=== PATIENT | female | born 1980 | race Caucasian/White ===

== ENCOUNTER → 2019-04-08 | Outpatient (CLI) | payer OTHER ==
[~2019-04-08] MED LIST: DOCU100 PO; FAMO20 PO; HYDACE5 PO; LAVAP17G PO; MAGCIT300 PO; OXYACE5T PO; PROM25 PO; TAMS.4ER PO
[2019-04-10 13:07] LABS: HPV 16 Negative (Negative); HPV 18 Negative (Negative); HPV OTHER HR TYPES Negative (Negative)
== END | disposition home or self-care (01) ==
LOC: LAB 11:10 → LAB SHORT 11:10
PROVIDERS: Obstetrics & Gynecology
DX: Z01.419 Encounter for gynecological examination (general) (routine) without abnormal findings (principal)
CPT/HCPCS: 87624; G0123

== ENCOUNTER 2020-11-11 14:41 | Emergency (ER) | payer OTHER ==
[~2020-11-11] VITALS: Ht 162.6 cm; Wt 83.9 kg
[2020-11-11] MEDS ORDERED: IBUP800 PO (15:59)
== END 2020-11-11 16:13 | disposition home or self-care (01) ==
LOC: ER 14:41
DX: S16.1XXA Strain of muscle, fascia and tendon at neck level, initial encounter (principal); S80.02XA Contusion of left knee, initial encounter; S80.01XA Contusion of right knee, initial encounter; Z88.0 Allergy status to penicillin; V49.40XA Driver injured in collision with unspecified motor vehicles in traffic accident, initial encounter; Y92.410 Unspecified street and highway as the place of occurrence of the external cause
CPT/HCPCS: 36415; 71045; 73120; 73562-LT; 73562-RT; 99284-25; A9270

== ENCOUNTER 2023-03-31 22:56 | Emergency (ER) | payer OTHER ==
[~2023-03-31] VITALS: Ht 160 cm; Wt 86.2 kg
[~2023-03-31 22:56] MED LIST changes: +IBUP800 PO
[2023-03-31 23:04] VITALS: BP 126/77
[2023-04-01] MEDS ORDERED: ACET500 PO (00:10)
[2023-04-01] MEDS ORDERED: DIAZ2 PO (00:10)
[2023-04-01] MEDS ORDERED: Ibuprofen600 MG PO (00:10)
== END 2023-04-01 00:20 | disposition home or self-care (01) ==
LOC: ER 22:56
DX: M62.838 Other muscle spasm (principal); Z88.0 Allergy status to penicillin
CPT/HCPCS: 93005; 93010; 96372; 99283-25; A9270; J1885; J7512

== ENCOUNTER 2024-07-17 10:01 | Day surgery (SDC) | payer OTHER ==
[2024-07-17] VITALS (18 sets, daily range): BP systolic 114–150; BP diastolic 56–98
[~2024-07-17] VITALS: Ht 161 cm; Wt 89.5 kg
[~2024-07-17 10:01] MED LIST changes: +ACET500 PO; +CeFAZolin Sodium 2,000 MG in NS 100 ML IV SCH; +DIAZ2 PO; +IRON; +Ibuprofen600 MG PO; +LEVSOD75 PO; +LORA.5 PO; +Lactated Ringer's 1,000 ML IV SCH; +VITAMIN D310 MC4 PO
[2024-07-17] MEDS ORDERED: Bupivacaine 0.5% HCl 5 MG/ML 30MLVIAL ONE (10:15)
[2024-07-17] MEDS ORDERED: ZOLPIDEM TART12.5 MG PO (10:22)
[2024-07-17] MEDS ORDERED: propofoL 20 ML IV ONE (10:38)
[2024-07-17] MEDS ORDERED: FentaNYL Citrate 50 MCG/ML 2 ML Injection ONE ×3 (10:38→13:21)
[2024-07-17] MEDS ORDERED: Ondansetron HCl 2 MG / ML 2ML Vial ONE (10:40)
[2024-07-17] MEDS ORDERED: Dexamethasone Sod Phos 10 MG/ML 1ML VIAL ONE (10:40)
[2024-07-17] MEDS ORDERED: Rocuronium Bromide 10 MG/ML 5ML Injection IV ONE ×2 (10:40→11:10)
[2024-07-17] MEDS ORDERED: Midazolam HCl 1MG / ML 2ML Vial ONE (10:45)
[2024-07-17] MEDS ORDERED: Midazolam HCl 1MG / ML 2ML Vial IV ONE (10:50)
[2024-07-17] MEDS ORDERED: Sugammadex Sodium 200 MG/2ML SDV (100 MG/ML) ONE (11:10)
[2024-07-17] MEDS ORDERED: HYDROcodone 5-APAP 325 TAB PO PRN (11:30)
[2024-07-17] MEDS ORDERED: HYDROmorphone HCl/Pf 1MG SYR ONE (13:14)
[2024-07-17] MEDS ORDERED: LORazepam 0.5 MG Tab PO PRN (14:00)
[2024-07-17] MEDS ORDERED: Cholecalciferol 400 unit Tab PO SCH (14:00)
[2024-07-17] MEDS ORDERED: Lactated Ringer's 1,000 ML IV SCH (14:05)
[2024-07-17] MEDS ORDERED: HYDROmorphone HCl/Pf 1MG SYR IV PRN (14:10)
[2024-07-17] MEDS ORDERED: OxyCODONE 5 mg/Acetamin 325 mg TABLET PO PRN (14:10)
[2024-07-17] MEDS ORDERED: Ondansetron 4 MG TAB PO PRN (14:10)
[2024-07-17] MEDS ORDERED: FLU VACC TS2024-25(6MOS UP)/PF 45 MCG/0.5 ML SYRINGE IM PRN (14:10)
[2024-07-17] MEDS ORDERED: Promethazine HCl 25 MG Tab PO PRN (14:10)
[2024-07-17] MEDS ORDERED: Ondansetron HCl 2 MG / ML 2ML Vial IV PRN (14:10)
[2024-07-17] MEDS ORDERED: Promethazine HCl 12.5 MG Supp PR PRN (14:10)
[2024-07-17] MEDS ORDERED: Simethicone 80 MG Chew PO PRN (14:15)
[2024-07-17] MEDS ORDERED: Naloxone HCl 0.4MG / ML 1ML Vial IV PRN (14:15)
[2024-07-17] MEDS ORDERED: Ketorolac Tromethamine 30mg Vial IV PRN (14:25)
--- NOTE | 2024-07-17 16:22 | NUR ---
SHIFT SUMMARY PT ARRIVED TO THE ROOM FROM PACU AT 1310. PT AWAKE AND ORIENTED. PT RATED PAIN AT 6/10 AND WAS GIVEN PERCOCET. PT ABLE TO REST WITH EYES CLOSED. VSS. NO CHANGES SINCE PT ARRIVED TO THE ROOM. VSS. BEDSIDE REPORT GIVEN TO JESSICA SALINAS.
--- NOTE | 2024-07-17 17:45 | NUR ---
ASSUMED PT CARE AT ABOUT 1600
[2024-07-17] MEDS ORDERED: CeFAZolin Sodium 2,000 MG in NS 100 ML IV SCH (18:00)
[2024-07-18 03:38] VITALS: BP 115/70
--- NOTE | 2024-07-18 04:44 | NUR ---
SHIFT SUMMARY POD 1 CHERI TOTAL LAP HYSTER PT ABLE TO REST DURING THE NIGHT. PAIN MANAGED PER EMAR. TOLERATING PO INTAKE. VOIDING. PT IND IN THE ROOM. X4 LAP SITES CLOSED WITH WG ARE C/D/I. SCANT AMOUNT OF VAGINAL BLEEDING. VSS. NO OTHER CONCERNS AT THIS TIME, CALL LIGHT WITHIN REACH
[2024-07-18 04:58] LABS: BASOPHILS ABSOLUTE AUTO 0.02 K/mm3 (0.00-0.23); BASOPHILS PERCENT AUTO 0 % (0-2); EOSINOPHILS ABSOLUTE AUTO 0.01 K/mm3 (0.00-0.68); EOSINOPHILS PERCENT AUTO 0 % (0-6); Hematocrit 33.4 % (33.0-51.0); Hemoglobin 11.9 g/dL (11.5-16.0); IMMATURE GRAN ABSOLUTE AUTO 0.02 K/mm3 (0.00-0.10); IMMATURE GRAN PERCENT AUTO 0 % (0-1); LYMPHOCYTES PERCENT AUTO 30 % (21-46); MONOCYTES ABSOLUTE AUTO 0.56 K/mm3 (0.16-1.47); MONOCYTES PERCENT AUTO 6 % (4-13); Mean Corpuscular HGB 33.7 pg (26.0-34.0); Mean Corpuscular HGB Conc 35.6 g/dL (31.5-36.5); Mean Corpuscular Volume 95 fL (80-100); Mean Platelet Volume 11.5 fL (9.1-12.4); NEUTROPHILS ABSOLUTE AUTO 5.75 K/mm3 (1.96-9.15); NEUTROPHILS PERCENT AUTO 64 % (41-73); Platelet Count 190 K/mm3 (150-400); RDW Coefficient Variation 11.9 % (11.7-14.2); RDW Standard Deviation 41.3 fL (35.1-46.3); Red Blood Cell Count 3.53 M/mm3 (3.80-5.20); White Blood Cell Count 9.06 K/mm3 (4.00-11.30)
[2024-07-18] MEDS ORDERED: Levothyroxine Sodium 0.075 MG Tab PO SCH (06:00)
[2024-07-18 07:23] VITALS: BP 119/84
[2024-07-18] MEDS ORDERED: PROM25 PO (12:01)
[2024-07-18] MEDS ORDERED: Percocet 5-3251 EACH PO (12:01)
[2024-07-18] MEDS ORDERED: SIME80CH PO (12:02)
--- NOTE | 2024-07-18 12:19 | NUR ---
DISCHARGE PT EDUCATED ON AND RECEIVED PRINTED DISCHARGE INSTRUCTIONS AND VERBALIZED AN UNDERSTANDING. PT FILLED RX PRIOR TO SURGERY. IV DC'D. PT INDEPENDENTLY GETTING DRESSED AND GATHERING PERSONAL BELONGINGS. PT FAMILY MEMBER AT BEDSIDE TO TAKE HER HOME. STAFF TO W/C PT OUT TO VEHICLE.
== END 2024-07-18 12:30 | disposition home or self-care (01) ==
LOC: ORSCMMR 10:01 → ORD 11:00 → ORSCMMR 11:00 → ORD 11:30 → SURS 14:06 → ORSCMMR 23:00
PROVIDERS: Obstetrics & Gynecology
PROC: 0UT9FZZ Resection of Uterus, Via Natural or Artificial Opening With Percutaneous Endoscopic Assistance (ICD-10-PCS; principal; 2024-07-17 11:00)
DX: N92.1 Excessive and frequent menstruation with irregular cycle (principal); Q50.5 Embryonic cyst of broad ligament; N80.103 Endometriosis of bilateral ovaries, unspecified depth; N94.6 Dysmenorrhea, unspecified; N94.12 Deep dyspareunia; E28.2 Polycystic ovarian syndrome; D50.0 Iron deficiency anemia secondary to blood loss (chronic); E66.9 Obesity, unspecified; Z68.35 Body mass index [BMI] 35.0-35.9, adult; Z87.891 Personal history of nicotine dependence; E03.9 Hypothyroidism, unspecified; F32.A Depression, unspecified; Z79.899 Other long term (current) drug therapy
CPT/HCPCS: 36415; 85025; 86850; 86900; 86901; 88307; A9270; J0690; J1100; J1171; J1885; J2250; J2405; J2704; J3010; J7120

== ENCOUNTER 2025-06-19 09:44 | Emergency (ER) | payer OTHER ==
[~2025-06-19] VITALS: Ht 160 cm; Wt 87.1 kg
[~2025-06-19 09:44] MED LIST changes: -CeFAZolin Sodium 2,000 MG in NS 100 ML IV SCH; -Lactated Ringer's 1,000 ML IV SCH; +Percocet 5-3251 EACH PO; +SIME80CH PO; +ZOLPIDEM TART12.5 MG PO
[2025-06-19 10:10] VITALS: BP 125/80
[2025-06-19] MEDS ORDERED: OXAYDO5 M1 PO (10:17)
[2025-06-19] MEDS ORDERED: GABA300 PO ×2 (10:17→10:18)
== END 2025-06-19 10:20 | disposition home or self-care (01) ==
LOC: ER 09:44
DX: R51.9 Headache, unspecified (principal); Z59.89 Other problems related to housing and economic circumstances; Z87.442 Personal history of urinary calculi
CPT/HCPCS: 99283